=== PATIENT | male | born 1995 | race Caucasian/White ===

== ENCOUNTER 2018-01-10 19:50 | Emergency (ER) | payer BC ==
[~2018-01-10] VITALS: Ht 170.2 cm; Wt 61.2 kg
[2018-01-10 20:09] VITALS: BP 127/76
[2018-01-10] MEDS ORDERED: EPIPEN 2-P0.3 MG/0.3 IM (20:19)
[2018-01-10] MEDS ORDERED: ZYRTEC10 MG ORAL (20:19)
--- NOTE | 2018-01-10 20:48 | Emergency Room Report ---
History of Present Illness General Chief Complaint: Allergic Reaction Source: Patient Present Illness HPI The patient states has multiple allergies. He states that he ate lentils today out at a restaurant started feeling short of breath and was concerned that he was having an anaphylactic reaction so he injected himself with his EpiPen. He states that this was a new styled EpiPen and it was backwards and he injected his thumb instead. He states he feels much better. He denies shortness of breath at this time. He also took Zyrtec just prior to arrival here. He denies rash. He denies tightness in his chest. He states that every time he has an anaphylactic reaction he does get acid reflux and is requesting treatment for that. He has no other complaints. Allergies: Uncoded Allergies: ALL FRESH FRUITS AND VEGETABLE. (Allergy, Unknown, 01/10/18) POULTRY, SEAFOOD, NUTS, LENTILS (Allergy, Unknown, 01/10/18) Patient History Past Medical History: none, other - Multiple allergies Social History: Denies: smoking, alcohol use, drug use Reviewed Nursing Documentation: PMH: Agreed; PSxH: Agreed Nursing Documentation-PMH Past Medical History: No History, Except For Hx Gastrointestinal Problems: Yes - c diff Review of Systems All Other Systems: negative except mentioned in HPI Physical Exam Vital Signs Date Time Temp Pulse Resp B/P (MAP) Pulse Ox O2 Delivery O2 Flow Rate FiO2 01/10/18 19:55 97.9 80 16 127/76 100 Room Air Sp02 EP Interpretation: reviewed, normal General Appearance: no apparent distress, alert, GCS 15, non-toxic Head: normocephalic, atraumatic Eyes: bilateral eye normal inspection, bilateral eye PERRL ENT: hearing grossly normal, normal pharynx, no angioedema, normal voice Neck: full range of motion, supple/symm/no masses Respiratory: chest non-tender, lungs clear, normal breath sounds, no respiratory distress, no retraction, no accessory muscle use, speaking full sentences Cardiovascular #1: regular rate, rhythm, no edema Gastrointestinal: normal bowel sounds, non tender, soft, non-distended, no guarding, no rebound Rectal: deferred Musculoskeletal: back normal, gait/station normal, normal range of motion, non- tender, other - pinpoint puncture wound to R. thumb. Soft not actively bleeding. Neurologic: alert, oriented x3, responsive, motor strength/tone normal, sensory intact, speech normal Psychiatric: judgement/insight normal, memory normal, mood/affect normal, no suicidal/homicidal ideation Skin: normal color, no rash, warm/dry, well hydrated Medical Decision Making Diagnostic Impression: Primary Impression: Allergic reaction ER Course This patient gave himself an EpiPen injection when he fell he was having an allergic reaction to lentils. My evaluation is benign. The patient has no evidence of anaphylaxis on exam. The patient's lung exam is clear and oropharynx is clear. The patient has no rash. Patient's right thumb has a puncture wound consistent with the accidental EpiPen injection into the thumb. The thumb otherwise appears to only have a puncture wound and there is no evidence of compartment syndrome or other injury. This has a low rate of infection and I will not treat with prophylactic antibiotics. Overall, this patient's evaluation is benign. The patient has 3 other EpiPen to home and has other antihistamines. I do not feel that this patient needs any further monitoring or evaluation emergency department at this time. The patient is given return precautions and follow up instructions. Last Vital Signs Date Time Temp Pulse Resp B/P (MAP) Pulse Ox O2 Delivery O2 Flow Rate FiO2 01/10/18 20:09 80 16 Room Air 01/10/18 20:09 97.9 127/76 100 Status: improved Disposition: HOME, SELF-CARE Condition: Improved Patient Instructions: Food Allergy Sugar Díaz DO Jan 10, 2018 20:48
[2018-01-10 21:00] VITALS: BP 123/74
== END 2018-01-10 21:50 | disposition home or self-care (01) ==
LOC: EDBD 19:50 → EMR 21:12
DX: T78.1XXA Other adverse food reactions, not elsewhere classified, initial encounter (principal); R06.02 Shortness of breath; S61.238A Puncture wound without foreign body of other finger without damage to nail, initial encounter; X58.XXXA Exposure to other specified factors, initial encounter; Z91.013 Allergy to seafood; Z91.018 Allergy to other foods; Z86.19 Personal history of other infectious and parasitic diseases
CPT/HCPCS: 99283